=== PATIENT | female | born 1980 | race Asian ===

== ENCOUNTER 2016-12-14 00:21 | Emergency (ER) | payer OTHER ==
[~2016-12-14] VITALS: Ht 165 cm; Wt 68.0 kg
[2016-12-14 00:32] VITALS: TEMP 97.1
[2016-12-14] MEDS ORDERED: FOLIC ACID 11 MG/TA1 (00:40)
[2016-12-14] MEDS ORDERED: PRENATAL (00:40)
[2016-12-14 01:17] LABS: BASO % 0.2 % (0.0-2.0); EOS # 0.1 (0.0-0.7); EOS % 1.2 % (0-4.0); GRAN # 5.2 (1.4-6.5); GRAN % 65.5 % (42.2-75.2); HEMATOCRIT 36.4 % (37.0-47.0); HEMOGLOBIN 12.6 g/dl (12.5-16.0); LYMPH % 25.3 % (20.0-51.0); MEAN CELL VOLUME 88 fl (80.0-100.0); MEAN CORPUSCULAR HEMOGLOBIN 31 pg (27.0-31.0); MEAN CORPUSCULAR HGB CONC 35 g/dl (33.0-37.0); MEAN PLATELET VOLUME 9.5 fl (7.4-10.4); MONO # 0.6 (0.1-0.6); MONO % 7.6 % (1.7-9.3); PLATELET COUNT 213 K/mm3 (130-400); RED BLOOD COUNT 4.13 M/mm3 (4.10-5.30); REDCELL DISTRIBUTION WIDTH-CV 12.5 % (11.5-14.5)
[2016-12-14 01:21] LABS: PH 6 (5-8); SQUAMOUS EPITHELIAL 0-2 /hpf; URINE APPEARANCE Clear; URINE BACTERIA None Seen /hpf; URINE BILIRUBIN Negative (NEGATIVE); URINE BLOOD Negative (NEGATIVE); URINE COLOR Yellow; URINE GLUCOSE Negative (NEGATIVE); URINE KETONE Negative (NEGATIVE); URINE UROBILINOGEN Negative (NEGATIVE); URINE WBC 0-2 /hpf
[2016-12-14 01:29] LABS: ADJUSTED CALCIUM 9.2 mg/dL (8.4-10.2); ALBUMIN 4.1 gm/dL (3.5-5.0); BILIRUBIN,TOTAL 0.4 mg/dL (0.0-1.0); CALCIUM 9.3 mg/dL (8.4-10.2); CREATININE, serum 0.52 mg/dL (0.52-1.25); POTASSIUM 3.7 mmol/L (3.4-5.0); TOTAL PROTEIN 6.9 gm/dL (6.4-8.2)
[2016-12-14 02:00] VITALS: BP 120/69; PULSE 73
== END 2016-12-14 02:10 | disposition home or self-care (01) ==
LOC: COL.ER 00:21
PROVIDERS: Physician Assistant
DX: O99.341 Other mental disorders complicating pregnancy, first trimester (principal); F43.8 Other reactions to severe stress; Z3A.01 Less than 8 weeks gestation of pregnancy

== ENCOUNTER 2017-07-27 02:08 | Inpatient (IN) | payer OTHER ==
[2017-07-27] VITALS (20 sets, daily range): BP systolic 111–149; BP diastolic 58–85; PULSE 78–102; TEMP 97.4–98.8
[~2017-07-27] VITALS: Ht 165.1 cm; Wt 87.7 kg
[~2017-07-27 02:08] MED LIST: FLAGYL500 MG PO; FOLIC ACID 11 MG/TA1; PRENATAL; PROMETRIUM200 M1 PO
[2017-07-27 04:53] LABS: BASO % 0.3 % (0.0-2.0); EOS # 0.1 (0.0-0.7); EOS % 1.4 % (0-4.0); GRAN # 4.5 (1.4-6.5); GRAN % 64.8 % (42.2-75.2); HEMOGLOBIN 12.6 g/dl (12.5-16.0); LYMPH # 1.5 (1.2-3.4); LYMPH % 21.8 % (20.0-51.0); MEAN CELL VOLUME 86 fl (80.0-100.0); MEAN CORPUSCULAR HEMOGLOBIN 30 pg (27.0-31.0); MEAN CORPUSCULAR HGB CONC 35 g/dl (33.0-37.0); MEAN PLATELET VOLUME 10.3 fl (7.4-10.4); MONO # 0.7 (0.1-0.6); MONO % 10.3 % (1.7-9.3); PLATELET COUNT 191 K/mm3 (130-400); RED BLOOD COUNT 4.21 M/mm3 (4.10-5.30); REDCELL DISTRIBUTION WIDTH-CV 13.4 % (11.5-14.5)
[2017-07-28] MEDS ORDERED: MOTRIN 800800 MG/TAB PO (07:49)
[2017-07-28] MEDS ORDERED: PERCOCET 325 MG1 TA2 PO (07:50)
[2017-07-28 08:45] VITALS: BP 105/74; PULSE 84; TEMP 97.3
== END 2017-07-28 12:50 | disposition home or self-care (01) | DRG 775 ==
LOC: LDRO 02:08 → OB 03:02 → LDR 03:02 → OB 19:19
PROVIDERS: Student in an Organized Health Care Education/Training Program
PROC: 10E0XZZ Delivery of Products of Conception, External Approach (ICD-10-PCS; principal; 2017-07-27)
PROC: 0KQM0ZZ Repair Perineum Muscle, Open Approach (ICD-10-PCS; 2017-07-27)
DX: O70.1 Second degree perineal laceration during delivery (principal); Z37.0 Single live birth; Z3A.38 38 weeks gestation of pregnancy
CPT/HCPCS: J2590; J2795; J7120

== ENCOUNTER → 2017-07-31 | Outpatient (CLI) | payer OTHER ==
[~2017-07-31] MED LIST changes: +MOTRIN 800800 MG/TAB PO; +PERCOCET 325 MG1 TA2 PO
== END ==
LOC: LAC 10:55
DX: Z39.1 Encounter for care and examination of lactating mother (principal); Z71.89 Other specified counseling

== ENCOUNTER → 2018-08-14 | Outpatient (CLI) | payer OTHER | LOC: MC.RAD 10:00 | DX: Z12.31 Encounter for screening mammogram for malignant neoplasm of breast (principal) ==

== ENCOUNTER → 2019-06-02 | Outpatient (CLI) | payer OTHER | LOC: COL.RAD 11:22 | DX: R10.32 Left lower quadrant pain (principal) | CPT/HCPCS: Q9967 ==

== ENCOUNTER 2019-10-24 10:58 | Emergency (ER) | payer OTHER ==
[~2019-10-24] VITALS: Ht 165.1 cm; Wt 53.2 kg
[2019-10-24 11:03] VITALS: TEMP 98.4
[2019-10-24 11:34] LABS: COLLECTION METHOD CLEAN CATCH
[2019-10-24 11:54] LABS: CALCIUM 9.4 mg/dL (8.4-10.2); CREATININE, serum 0.53 (0.52-1.25); POTASSIUM 3.4 mmol/L (3.4-5.0)
[2019-10-24 11:56] LABS: BASO % 0.2 % (0.0-2.0); EOS # 0.1 (0.0-0.7); EOS % 1.2 % (0-4.0); GRAN % 73.3 % (42.2-75.2); HEMATOCRIT 41.3 % (37.0-47.0); HEMOGLOBIN 13.6 g/dl (12.5-16.0); LYMPH # 1.5 (1.2-3.4); LYMPH % 18.7 % (20.0-51.0); MEAN CELL VOLUME 87 fl (80.0-100.0); MEAN CORPUSCULAR HEMOGLOBIN 29 pg (27.0-31.0); MEAN CORPUSCULAR HGB CONC 33 g/dl (33.0-37.0); MEAN PLATELET VOLUME 9.6 fl (7.4-10.4); MONO # 0.5 (0.1-0.6); MONO % 6.4 % (1.7-9.3); PLATELET COUNT 266 K/mm3 (130-400); RED BLOOD COUNT 4.77 M/mm3 (4.10-5.30); REDCELL DISTRIBUTION WIDTH-CV 12.8 % (11.5-14.5)
[2019-10-24 12:14] LABS: PH 6 (5-8); SQUAMOUS EPITHELIAL 0-2 /hpf; URINE APPEARANCE Hazy; URINE BACTERIA Occasional /hpf; URINE BILIRUBIN Negative (NEGATIVE); URINE BLOOD 3+ (NEGATIVE); URINE COLOR Amber; URINE GLUCOSE Negative (NEGATIVE); URINE KETONE Negative (NEGATIVE); URINE LEUKOCYTE ESTERASE Negative (NEGATIVE); URINE NITRATE Negative (NEGATIVE); URINE PROTEIN(semi-quant) 2+ (NEGATIVE); URINE UROBILINOGEN Negative (NEGATIVE)
[2019-10-24] MEDS ORDERED: CEPHALEXIN500 M1 PO (14:58)
[2019-10-24 15:05] VITALS: BP 110/72; PULSE 81
== END 2019-10-24 15:10 | disposition home or self-care (01) ==
LOC: COL.ER 10:58
PROVIDERS: Emergency Medicine; Physician Assistant
DX: O03.9 Complete or unspecified spontaneous abortion without complication (principal); Z3A.08 8 weeks gestation of pregnancy
CPT/HCPCS: J7030